=== PATIENT | female | born 1995 | race Caucasian/White ===

== ENCOUNTER 2017-07-11 05:08 | Emergency (ER) | payer BC, OTHER ==
[2017-07-11] MEDS ORDERED: Ketorolac INJ* 60 MG/2 ML VIAL IM ONE (05:27)
[2017-07-11] MEDS ORDERED: Cyclobenzaprine TAB* 10 MG PO ONE (05:27)
[2017-07-11] MEDS ORDERED: Ondansetron ODT TAB* 4 MG SL ONE (05:43)
[2017-07-11 06:17] VITALS: BP 110/67
--- NOTE | 2017-07-17 19:51 | ED ---
Dylan Kerr Benjamin, scribed for Selwyn Tiwari MD on 07/11/17 at 0531 . Neck Pain - HPI Summary HPI Summary: 22yo female c/o neck pain and bilateral shoulder and upper back pain. Pt states that this has been an ongoing problem for a year but pain has worsened this morning. Pt has tried OTC meds for pain, which didnt help much. However, marijuana has helped with pain. Pt has also seen a physical chemist for her problem, and has a neurologist appointment coming up. - History of Current Complaint Chief Complaint: EDNeckComplaint Stated Complaint: BACK/RIGHT SHOULDER PAIN Time Seen by Provider: 07/11/17 05:20 Hx Obtained From: Patient Hx Last Menstrual Period: 11/15/13 Mechanism Of Injury: No Known Trauma Timing: Constant, Lasting Weeks - ongoing chronic pain for 1 year Onset/Duration: Still Present, Worse Since - this morning Severity Initially: Moderate Severity Currently: Moderate Pain Intensity: 7 Pain Scale Used: 0-10 Numeric Location: Discrete At: - neck, shoulders, upper back Aggravating Factors: Movement Alleviating Factors: Nothing Associated Signs & Symptoms: Positive: Negative - Allergies/Home Medications Allergies/Adverse Reactions: Allergies Allergy/AdvReac Type Severity Reaction Status Date / Time No Known Allergies Allergy Verified 11/15/13 22:06 PMH/Surg Hx/FS Hx/Imm Hx Endocrine/Hematology History: Denies: Hx Diabetes, Hx Thyroid Disease Cardiovascular History: Denies: Hx Hypertension Respiratory History: Reports: Hx Asthma Denies: Hx Chronic Obstructive Pulmonary Disease (COPD) GI History: Denies: Hx Ulcer Infectious Disease History: No Infectious Disease History: Denies: Hx Hepatitis, Hx Human Immunodeficiency Virus (HIV), Traveled Outside the [place] in Last 30 Days - Family History Known Family History: Negative: Hypertension, Seizure Disorder - Social History Occupation: Student Lives: Dormitory/Roommates Alcohol Use: Weekly Substance Use Type: Reports: Marijuana Smoking Status (MU): Light Every Day Tobacco Smoker Review of Systems Constitutional: Negative Eyes: Negative ENT: Negative Cardiovascular: Negative Respiratory: Negative Gastrointestinal: Negative Genitourinary: Negative Positive: Arthralgia - neck pain, shoulder pain,, Myalgia - upper back pain Skin: Negative Neurological: Negative Psychological: Normal All Other Systems Reviewed And Are Negative: Yes Physical Exam - Summary Physical Exam Summary: VITAL SIGNS: Reviewed. GENERAL: Patient is a well-developed and nourished FEMALE who is lying comfortable in the stretcher. Patient is not in any acute respiratory distress. HEAD AND FACE: No signs of trauma. No ecchymosis, hematomas or skull depressions. No sinus tenderness. EYES: PERRLA, EOMI x 2, No injected conjunctiva, no nystagmus. EARS: Hearing grossly intact. Ear canals and tympanic membranes are within normal limits. MOUTH: Oropharynx within normal limits. NECK: Supple, trachea is midline, no adenopathy, no JVD, no carotid bruit, no c- spine tenderness, neck with full ROM. CHEST: Symmetric, no tenderness at palpation LUNGS: Clear to auscultation bilaterally. No wheezing or crackles. CVS: Regular rate and rhythm, S1 and S2 present, no murmurs or gallops appreciated. ABDOMEN: Soft, non-tender. No signs of distention. No rebound no guarding, and no masses palpated. Bowel sounds are normal. EXTREMITIES: FROM in all major joints, no edema, no cyanosis or clubbing. Localized tenderness over the right shoulder. NEURO: Alert and oriented x 3. No acute neurological deficits. Speech is normal and follows commands. SKIN: Dry and warm Triage Information Reviewed: Yes Vital Signs On Initial Exam: Initial Vitals Temp Pulse Resp BP Pulse Ox 97.2 F 82 16 125/85 100 07/11/17 05:10 07/11/17 05:10 07/11/17 05:10 07/11/17 05:10 07/11/17 05:10 Vital Signs Reviewed: Yes - Dodson Coma Scale Coma Scale Total: 15 Diagnostics - Vital Signs Vital Signs Temp Pulse Resp BP Pulse Ox 07/11/17 05:10 97.2 F 82 16 125/85 100 - Laboratory Lab Statement: Any lab studies that have been ordered have been reviewed, and results considered in the medical decision making process. Neck Course/Dx - Diagnoses Provider Diagnoses: Back pain Discharge - Discharge Plan Condition: Stable Disposition: HOME Prescriptions: Cyclobenzaprine TAB* [Flexeril 10 MG TAB*] 10 mg PO TID PRN #20 tab PRN Reason: Spasms Ibuprofen TAB* [Motrin TAB* 800 MG] 800 mg PO Q6H PRN #30 tab PRN Reason: Pain Patient Education Materials: Musculoskeletal Pain (ED) Referrals: [facility] - Joshua STANFORD [Primary Care Provider] - Additional Instructions: RETURN TO EMERGENCY DEPARTMENT FOR ANY NEW OR WORSENING SYMPTOMS The documentation as recorded by the Dylan alvarado Benjamin accurately reflects the service I personally performed and the decisions made by me, Selwyn Tiwari MD.
== END 2017-07-11 06:21 | disposition home or self-care (01) ==
LOC: ED 05:08
DX: M54.9 Dorsalgia, unspecified (principal); Z72.0 Tobacco use
CPT/HCPCS: 96372; 99282; A9270-GY; J1885